=== PATIENT | male | born 1945 | race Caucasian/White ===

== ENCOUNTER 2016-11-01 07:11 | Outpatient (CLI) | payer MEDICARE, OTHER ==
[2016-11-01 11:17] LABS: BASOPHILS % (AUTO) 0.4 %; EOSINOPHILS # (AUTO) 0.1 10^3/uL (0.0-0.7); EOSINOPHILS % (AUTO) 1.9 %; HCT - HEMATOCRIT 49.3 % (42.0-52.0); HGB - HEMOGLOBIN 16.8 g/dL (14.0-18.0); LYMPHOCYTES # (AUTO) 2.1 10^3/uL (1.5-3.5); LYMPHOCYTES % (AUTO) 32.4 %; MEAN CORPUSCULAR HEMOGLOBIN 33.6 pg (27.0-31.0); MEAN CORPUSCULAR HGB CONC 34.1 g/dL (32.0-36.0); MEAN CORPUSCULAR VOLUME 98.3 fL (80.0-94.0); MEAN PLATELET VOLUME 8.1 fL (7.4-11.4); MONOCYTES # (AUTO) 0.7 10^3/uL (0.0-1.0); MONOCYTES % (AUTO) 10.4 %; NEUTROPHILS # (AUTO) 3.5 10^3/uL (1.5-6.6); NEUTROPHILS % (AUTO) 54.9 %; NUCLEATED RED BLOOD CELLS AUTO 0.1 /100WBC; RED BLOOD COUNT 5.01 10^6/uL (4.70-6.10); RED CELL DISTRIBUTION WIDTH 13.6 % (12.0-15.0); UNCORRECTED WHITE BLOOD COUNT 6.4 x10^3/uL; WHITE BLOOD COUNT 6.4 x10^3/uL (4.8-10.8)
[2016-11-01 11:49] LABS: ALBUMIN/GLOBULIN RATIO 1.4 (1.0-2.2); BILIRUBIN,TOTAL 0.8 mg/dL (0.2-1.0); BUN - BLOOD UREA NITROGEN 12 mg/dL (6-20); CARBON DIOXIDE - CO2 25 mmol/L (21-32); CHLORIDE 107 mmol/L (101-111); CHOL/HDL RATIO 3.3 (<5.0); CHOLESTEROL 149 mg/dL; CREATININE 0.9 mg/dL (0.6-1.2); GFR - MDRD 83 (>89); GLUCOSE 101 mg/dL (70-100); HDL CHOLESTEROL 45 mg/dL; LDL/HDL RATIO 2.1 (<3.6); POTASSIUM 4.1 mmol/L (3.5-5.0); SODIUM 140 mmol/L (135-145); TOTAL PROTEIN 6.8 g/dL (6.7-8.2); TRIGLYCERIDES 56 mg/dL; VLDL CHOLESTEROL 11 mg/dL
== END 2016-11-01 07:12 | disposition home or self-care (01) ==
LOC: LAB.F 07:11
PROVIDERS: ATTEND Nurse Practitioner Family
DX: Z00.00 Encounter for general adult medical examination without abnormal findings (principal); E55.9 Vitamin D deficiency, unspecified; E78.5 Hyperlipidemia, unspecified
CPT/HCPCS: 36415; 80053; 80061; 82306; 85025

== ENCOUNTER 2016-12-12 16:04 | Outpatient (CLI) | payer MEDICARE, OTHER ==
--- NOTE | 2016-12-13 19:25 | XRAY Report ---
CHEST, PA AND LATERAL: 12/12/2016 CLINICAL HISTORY: Patient has mucopurulent coughing x8 weeks. FINDINGS: Bony thorax demonstrates a minor old compression fracture in the lower T-spine. Minimal a nterior wedging in the mid T-spine is seen. Normal cardiac size is noted. Mediastinum is not widened. Pulmonary parenchyma appears normal. No acute infiltrate is seen. No parenchymal lesion is noted. IMPRESSION: 1. HEART AND LUNGS SHOW NO SIGNIFICANT ABNORMALITY. 2. MILD OLD COMPRESSION FRACTURE OF ONE OF THE LOWER THORACIC VERTEBRAE IS SEEN. JOB #: [id number] EXT JOB #:[id number]
== END 2016-12-12 16:05 | disposition home or self-care (01) ==
LOC: DI.S 16:04
PROVIDERS: ATTEND Nurse Practitioner Family
DX: R05 Cough (principal)
CPT/HCPCS: 71020

== ENCOUNTER 2017-02-11 11:07 | Outpatient (CLI) | payer MEDICARE, OTHER | END 2017-02-11 11:08 | disposition home or self-care (01) | LOC: LAB.F 11:07 | PROVIDERS: ATTEND Nurse Practitioner Family | DX: Z11.3 Encounter for screening for infections with a predominantly sexual mode of transmission (principal) | CPT/HCPCS: 36415; 86694; 86695; 86696; 87491; 87522; 87591; G0475; 87389 ==

== ENCOUNTER 2017-08-06 08:56 | Outpatient (CLI) | payer MEDICARE, OTHER ==
[2017-08-06 17:39] LABS: BASOPHILS % (AUTO) 0.4 %; EOSINOPHILS # (AUTO) 0.1 10^3/uL (0.0-0.7); EOSINOPHILS % (AUTO) 1.6 %; HGB - HEMOGLOBIN 16.3 g/dL (14.0-18.0); LYMPHOCYTES # (AUTO) 2.1 10^3/uL (1.5-3.5); LYMPHOCYTES % (AUTO) 31.1 %; MEAN CORPUSCULAR HEMOGLOBIN 33.2 pg (27.0-31.0); MEAN CORPUSCULAR HGB CONC 32.8 g/dL (32.0-36.0); MEAN CORPUSCULAR VOLUME 101.4 fL (80.0-94.0); MEAN PLATELET VOLUME 8.1 fL (7.4-11.4); MONOCYTES # (AUTO) 0.8 10^3/uL (0.0-1.0); NEUTROPHILS # (AUTO) 3.6 10^3/uL (1.5-6.6); NEUTROPHILS % (AUTO) 54.9 %; PLT - PLATELET COUNT 210 10^3/uL (130-450); RED BLOOD COUNT 4.92 10^6/uL (4.70-6.10); RED CELL DISTRIBUTION WIDTH 13.9 % (12.0-15.0); WHITE BLOOD COUNT 6.6 x10^3/uL (4.8-10.8)
[2017-08-06 17:41] LABS: ALBUMIN 4.3 g/dL (3.2-5.5); ALBUMIN/GLOBULIN RATIO 1.8 (1.0-2.2); ALKALINE PHOSPHATASE 41 IU/L (42-121); ALT ALANINE AMINOTRANSFERASE 18 IU/L (10-60); AST ASPARTATE AMINOTRANSFERASE 19 IU/L (10-42); BILIRUBIN,TOTAL 0.8 mg/dL (0.2-1.0); BUN - BLOOD UREA NITROGEN 14 mg/dL (6-20); CALCIUM 9.3 mg/dL (8.5-10.3); CARBON DIOXIDE - CO2 24 mmol/L (21-32); CHLORIDE 103 mmol/L (101-111); GFR - MDRD 73 (>89); GLUCOSE 97 mg/dL (70-100); SODIUM 137 mmol/L (135-145); TOTAL PROTEIN 6.7 g/dL (6.7-8.2)
[2017-08-06 17:43] LABS: CRP HIGH SENSITIVITY < 0.5 mg/L
[2017-08-06 18:05] LABS: T4 (THYROXINE) 5.87 ug/dL (6.09-12.23)
[2017-08-06 18:09] LABS: THYROID STIMULATING HORMONE 0.61 uIU/mL (0.34-5.60)
[2017-08-06 18:11] LABS: FREE T4 (FREE THYROXINE) 0.88 ng/dL (0.58-1.64)
[2017-08-06 18:41] LABS: HB2 TOTAL 17.9 g/dL; HEMOGLOBIN A1C 0.72 g/dL; HEMOGLOBIN A1C % 5.8 % (4.6-6.2)
[2017-08-08 12:41] LABS: THYROID PEROXIDASE ANTIBODIES 1 IU/mL (<9)
== END 2017-08-06 08:57 | disposition home or self-care (01) ==
LOC: LAB.F 08:56
PROVIDERS: ATTEND Nurse Practitioner Family
DX: M46.90 Unspecified inflammatory spondylopathy, site unspecified (principal); R53.83 Other fatigue; R73.9 Hyperglycemia, unspecified; E55.9 Vitamin D deficiency, unspecified; Z79.899 Other long term (current) drug therapy
CPT/HCPCS: 36415; 80053; 81599; 82306; 83036; 83090; 84436; 84439; 84443; 84481; 85025; 86141; 86376; 86800

== ENCOUNTER 2017-10-10 09:37 | Outpatient (CLI) | payer MEDICARE, OTHER ==
[2017-10-12 11:31] LABS: HSV 1 IGG TYPE SPECIFIC AB <0.90 index; HSV 2 IGG TYPE SPECIFIC AB <0.90 index
== END 2017-10-10 09:38 | disposition home or self-care (01) ==
LOC: LAB.F 09:37
PROVIDERS: ATTEND Nurse Practitioner Family
DX: Z11.3 Encounter for screening for infections with a predominantly sexual mode of transmission (principal)
CPT/HCPCS: 36415; 86695; 86696; 87491; 87591

== ENCOUNTER 2018-01-15 14:50 | Outpatient (CLI) | payer MEDICARE, OTHER | END 2018-01-15 14:51 | disposition critical access hospital (66) | LOC: EMS 14:50 | PROVIDERS: ATTEND Surgery | DX: R41.3 Other amnesia (principal); R41.0 Disorientation, unspecified | CPT/HCPCS: A0425; A0429 ==

== ENCOUNTER 2018-01-15 15:31 | Emergency (ER) | payer MEDICARE, OTHER ==
--- NOTE | 2018-01-15 17:24 | ED Physician Documentation ---
PD HPI FOCAL NEURO - Stated complaint Stated Complaint: MEMORY LOSS - Chief complaint Chief Complaint: Neuro - History obtained from History obtained from: Patient - History of Present Illness Timing - onset: How many weeks ago (daughter says he has had some memory deficits for months, but seems to be more aware of it the past couple of days - forgot that his had recently, for example. He feels there is some memory deficit more lately and he is bothered/frustrated by it.) Timing - details: Waxing and waning Severity of deficit: Mild Weakness: No: Face, Arm, Hand Numbness: No: Face, Hand Associated symptoms: No: Headache, Nausea / vomiting, Head injury Contributing factors: negative: Anticoagulated Baseline status: positive: A&OX3, ambulatory, indep Similar symptoms before: Has not had sx before Recently seen: Clinic (dentist yesterday for extraction of infected tooth right lower.) Review of Systems Constitutional: denies: Fever, Chills, Myalgias Nose: denies: Rhinorrhea / runny nose, Congestion Throat: denies: Sore throat Cardiac: denies: Chest pain / pressure, Palpitations Respiratory: denies: Dyspnea : denies: Dysuria, Frequency Skin: denies: Rash, Lesions Endocrine: denies: Polyuria, Polyphagia PD PAST MEDICAL HISTORY - Past Medical History Past Medical History: Yes - Past Surgical History Past Surgical History: No - Present Medications Home Medications: Ambulatory Orders Medication Instructions Recorded Confirmed No Known Home Medications [No 01/15/18 01/15/18 Known Home Medications] - Allergies Allergies/Adverse Reactions: Allergies Allergy/AdvReac Type Severity Reaction Status Date / Time No Known Drug Allergies Allergy Verified 01/15/18 15:50 - Social History Does the pt smoke?: No Smoking Status: Never smoker Does the pt drink ETOH?: No Does the pt have substance abuse?: No - Immunizations Immunizations are current?: Yes PD ED PE NORMAL - Vitals Vital signs reviewed: Yes - General General: Alert and oriented X 3, No acute distress, Well developed/nourished - HEENT HEENT: Atraumatic, Ears normal, Moist mucous membranes, Pharynx benign, Other ( right lower extraction site for tooth appears good without signs of inection. 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 Otherwise alert and conversant. ) Eye Opening: Spontaneous Motor: Obeys Commands Verbal: Oriented GCS Score: 15 - Psych Psych: Normal mood, Normal affect NIHSS - Level of Consciousness Level of consciousness: (0) Alert, Keenly responsive LOC Questions: (0) Answers both Q's correct LOC Commands: (0) Performs both correctly - Gaze Best Gaze: (0) Normal - Visual Visual: (0) No loss - Facial Palsy Facial Palsy: (0) Normal, symmetrical movement - Motor Arms (both separate) Motor Arm (right): (0) No drift Motor Arm (left): (0) No drift - Motor Legs (both separate) Motor Leg (right): (0) No drift Motor Leg (left): (0) No drift - Limb Ataxia Limb Ataxia: (0) Absent - Sensory Sensory: (0) Normal - Best Language Best Language: (0) No aphasia - Dysarthria Dysarthria: (0) Normal - Extinction and Inattention (formally neg Extinction and inattention: (0) No abnormality - Total Score/Results Total Score/Result: 0 Results - Vitals Vitals: Oxygen O2 Source Room air - Labs Labs: Laboratory Tests 01/15/18 01/15/18 01/15/18 17:00 17:59 17:59 WBC 8.9 RBC 4.42 L Hgb 15.3 Hct 44.8 MCV 101.2 H MCH 34.5 H MCHC 34.1 RDW 14.2 Plt Count 220 MPV 7.4 Neut # (Auto) 6.8 H Lymph # (Auto) 1.2 L Stearns # (Auto) 0.8 Eos # (Auto) 0.0 Baso # (Auto) 0.0 Absolute Nucleated RBC 0.00 Nucleated RBC % 0.0 ESR Sodium 133 L Potassium 4.6 Chloride 99 L Carbon Dioxide 25 Anion Gap 9.0 BUN 18 Creatinine 0.9 Estimated GFR (MDRD) 83 L Glucose 121 H Lactic Acid Calcium 9.5 Magnesium 2.3 Total Bilirubin 0.9 AST 16 ALT 15 Alkaline Phosphatase 38 L Troponin I Total Protein 6.9 Albumin 4.1 Globulin 2.8 Albumin/Globulin Ratio 1.5 Lipase 41 TSH Thyroxine (T4) Free T3 pg/mL Urine Color YELLOW Urine Clarity CLEAR Urine pH 5.5 Ur Specific [place] 1.025 Urine Protein NEGATIVE Urine Glucose (UA) 100 H Urine Ketones NEGATIVE Urine Occult Blood NEGATIVE Urine Nitrite NEGATIVE Urine Bilirubin NEGATIVE Urine Urobilinogen 0.2 (NORMAL) Ur Leukocyte Esterase NEGATIVE Ur Microscopic Review NOT INDICATED Urine Culture Comments NOT INDICATED 01/15/18 01/15/18 01/15/18 17:59 17:59 17:59 WBC RBC Hgb Hct MCV MCH MCHC RDW Plt Count MPV Neut # (Auto) Lymph # (Auto) Stearns # (Auto) Eos # (Auto) Baso # (Auto) Absolute Nucleated RBC Nucleated RBC % ESR 5 Sodium Potassium Chloride Carbon Dioxide Anion Gap BUN Creatinine Estimated GFR (MDRD) Glucose Lactic Acid 0.6 Calcium Magnesium Total Bilirubin AST ALT Alkaline Phosphatase Troponin I < 0.04 Total Protein Albumin Globulin Albumin/Globulin Ratio Lipase TSH Thyroxine (T4) Free T3 pg/mL Urine Color Urine Clarity Urine pH Ur Specific [place] Urine Protein Urine Glucose (UA) Urine Ketones Urine Occult Blood Urine Nitrite Urine Bilirubin Urine Urobilinogen Ur Leukocyte Esterase Ur Microscopic Review Urine Culture Comments 01/15/18 01/15/18 01/15/18 17:59 17:59 17:59 WBC RBC Hgb Hct MCV MCH MCHC RDW Plt Count MPV Neut # (Auto) Lymph # (Auto) Stearns # (Auto) Eos # (Auto) Baso # (Auto) Absolute Nucleated RBC Nucleated RBC % ESR Sodium Potassium Chloride Carbon Dioxide Anion Gap BUN Creatinine Estimated GFR (MDRD) Glucose Lactic Acid Calcium Magnesium Total Bilirubin AST ALT Alkaline Phosphatase Troponin I Total Protein Albumin Globulin Albumin/Globulin Ratio Lipase TSH 0.19 L Thyroxine (T4) 5.66 L Free T3 pg/mL 3.61 Urine Color Urine Clarity Urine pH Ur Specific [place] Urine Protein Urine Glucose (UA) Urine Ketones Urine Occult Blood Urine Nitrite Urine Bilirubin Urine Urobilinogen Ur Leukocyte Esterase Ur Microscopic Review Urine Culture Comments - Rads (name of study) head CT Radiology: Prelim report reviewed (age related changes. No acute process. ) PD MEDICAL DECISION MAKING - ED course Complexity details: considered differential (memory deficits that undulate, sometimes worse. Had tooth extracted yesterday with local anesth only. Seemed to be more forgetful and confused this morning. No new meds. No fever. concern for infection, med effect, sinus thrombosis with recent dental work. Will get labs and CT head. ), d/w patient, d/w family (daughter came to ER and is saying that the memory change is not so abrupt, has been undulating, and is worse the past few days. Discussed potential MRI with options of OBS and MRI tomorrow or getting it through PMD, and they would prefer to get any further testing through PMD. He is to start baby ASA daily and he said he is willing to do that. ) - Sepsis Event Vital Signs: Oxygen O2 Source Room air Departure - Departure Disposition: 01 Home, Self Care Clinical Impression: Memory changes Condition: Stable Record reviewed to determine appropriate education?: Yes Instructions: ED Confusion Follow-Up: Stanton Velasco ARNP [Primary Care Provider] - Comments: Take a baby aspirin daily. Follow-up with your primary care regarding possible outpatient MRI to evaluate for small stroke or other abnormalities. Also have them follow-up on the thyroid test results. Drink lots of fluids. Other usual medications. Discharge Date/Time: 01/15/18 19:59
[2018-01-15 17:31] LABS: BILIRUBIN,URINE NEGATIVE (NEGATIVE); GLUCOSE, URINE (UA) 100 mg/dL (NEGATIVE); KETONES,URINE (UA) NEGATIVE (NEGATIVE); LEUKOCYTE ESTERASE, URINE NEGATIVE (NEGATIVE); NITRITE,URINE NEGATIVE (NEGATIVE); OCCULT BLOOD,URINE NEGATIVE (NEGATIVE); PH,URINE 5.5 PH (5.0-7.5); PROTEIN,URINE NEGATIVE (NEGATIVE); UROBILINOGEN,URINE 0.2 (NORMAL) E.U./dL (NORMAL)
[2018-01-15 17:32] LABS: CLARITY,URINE CLEAR (CLEAR)
[2018-01-15 18:08] LABS: BASOPHILS % (AUTO) 0.4 %; EOSINOPHILS % (AUTO) 0.2 %; HGB - HEMOGLOBIN 15.3 g/dL (14.0-18.0); LYMPHOCYTES # (AUTO) 1.2 10^3/uL (1.5-3.5); LYMPHOCYTES % (AUTO) 13.6 %; MEAN CORPUSCULAR HEMOGLOBIN 34.5 pg (27.0-31.0); MEAN CORPUSCULAR HGB CONC 34.1 g/dL (32.0-36.0); MEAN CORPUSCULAR VOLUME 101.2 fL (80.0-94.0); MEAN PLATELET VOLUME 7.4 fL (7.4-11.4); MONOCYTES # (AUTO) 0.8 10^3/uL (0.0-1.0); MONOCYTES % (AUTO) 8.8 %; NEUTROPHILS # (AUTO) 6.8 10^3/uL (1.5-6.6); PLT - PLATELET COUNT 220 10^3/uL (130-450); RED BLOOD COUNT 4.42 10^6/uL (4.70-6.10); RED CELL DISTRIBUTION WIDTH 14.2 % (12.0-15.0); WHITE BLOOD COUNT 8.9 x10^3/uL (4.8-10.8)
[2018-01-15 18:17] LABS: ALBUMIN 4.1 g/dL (3.2-5.5); ALBUMIN/GLOBULIN RATIO 1.5 (1.0-2.2); BILIRUBIN,TOTAL 0.9 mg/dL (0.2-1.0); CALCIUM 9.5 mg/dL (8.5-10.3); CREATININE 0.9 mg/dL (0.6-1.2); MAGNESIUM 2.3 mg/dL (1.7-2.8); TOTAL PROTEIN 6.9 g/dL (6.7-8.2)
[2018-01-15 18:44] VITALS: BP 119/73
--- NOTE | 2018-01-15 18:47 | CT Report ---
Procedure Date: 01/15/2018 Accession Number: [id number] / [id number] Procedure: CT - Head W/O CPT Code: FULL RESULT: EXAM: CT HEAD EXAM DATE: 01/15/2018 06:20 PM. CLINICAL HISTORY: Confusion worse today. COMPARISON: None. TECHNIQUE: Multiaxial CT images were obtained from the foramen magnum to the vertex. Reformats: Coronal. IV contrast: None. In accordance with CT protocol optimization, one or more of the following dose reduction techniques were utilized for this exam: automated exposure control, adjustment of mA and/or KV based on patient size, or use of iterative reconstructive technique. FINDINGS: Parenchyma: No intraparenchymal hemorrhage. No evidence of mass, midline shift, or CT findings of acute infarction. Irizarry-white differentiation is distinct. Diffuse chronic microangiopathic white matter changes are evident. Extraaxial Spaces: Normal for age. No subdural or epidural collections identified. Ventricles: The ventricles and cortical sulci are enlarged, consistent with age-related tissue loss. Sinuses and orbits: Imaged paranasal sinuses, orbits, and mastoids show no significant abnormality. Bones: No evidence of fracture or calvarial defect. Other: None. IMPRESSION: Generalized age-related cortical atrophic changes without evidence of acute intracranial abnormality. RADIA
[2018-01-15] MEDS ORDERED: ASPIRIN CHEW 81 MG TABLET PO STA (19:50)
== END 2018-01-15 19:59 | disposition home or self-care (01) ==
LOC: EDUNIT# → ED 15:31
DX: R41.3 Other amnesia (principal)
CPT/HCPCS: 36415; 70450; 80053; 81003; 83605; 83690; 83735; 84436; 84443; 84481; 84484; 85025; 85651; 99283; A9270; 81001; 87086

== ENCOUNTER 2018-02-10 09:27 | Outpatient (CLI) | payer MEDICARE, OTHER ==
--- NOTE | 2018-02-11 07:09 | MRI Report ---
Reason: ACUTE SHORT TERM MEMORY LOSS Procedure Date: 02/10/2018 Accession Number: [id number] / [id number] Procedure: MRI - Brain W/O CPT Code: FULL RESULT: EXAM: MRI BRAIN WITHOUT CONTRAST EXAM DATE: 02/10/2018 10:33 AM. CLINICAL HISTORY: 72-year-old male. ACUTE SHORT TERM MEMORY LOSS. COMPARISON: HEAD W/O 01/15/2018 6:12 PM. TECHNIQUE: Multiplanar, multisequence T1-weighted and fluid-sensitive MR sequences of the brain were performed. Sequences optimized for routine evaluation. Other: None. IV Contrast: None. FINDINGS: Brain Volume: Normal for age. Parenchyma/Dura: No mass, acute infarct or hemorrhage. No white matter lesions identified. There is a focus of susceptibility artifact within the inferior medial left cerebellum (series 801 image 2). Ventricles/Cisterns: Moderate ventriculomegaly involving the supratentorial ventricles, appears out of proportion to sulcal enlargement. In addition, the Powell ratio measures 0.38, which is elevated. Orbits: Status post bilateral lens replacement surgery. The visualized orbits are otherwise unremarkable. Sella Turcica: The pituitary gland, cavernous sinuses, suprasellar cistern and optic chiasm are unremarkable. IAC: Symmetric and unremarkable. Vasculature: Normal signal flow void is seen in the major arterial structures at the skull base. Sinuses: Mild mucosal thickening ethmoid air cells. Moderate mucosal thickening right maxillary sinus. The remaining paranasal sinuses are clear. Bones: No focal pathologic appearing marrow signal changes. Other: None. IMPRESSION: 1. Moderate ventriculomegaly involving the supratentorial ventricles, appears out of proportion to sulcal enlargement. In addition, the Powell ratio measures 0.38, which is elevated. This is nonspecific for prominent central volume loss versus normal pressure hydrocephalus. Recommend clinical correlation for symptoms of normal pressure hydrocephalus. In addition, consider CSF flow study MRI. 2. No MRI evidence of acute intracranial abnormality. Specifically, no evidence of acute or subacute infarct, acute intracranial hemorrhage, mass, or midline shift. No significant white matter disease burden. 3. There is a focus of susceptibility artifact within the inferior medial left cerebellum (series 801 image 2). This may represent a chronic microhemorrhage, possibly hypertensive microbleed versus a small cavernoma. RADIA
== END 2018-02-10 09:28 | disposition home or self-care (01) ==
LOC: DI 09:27
PROVIDERS: ATTEND Nurse Practitioner Family
DX: G93.89 Other specified disorders of brain (principal); R41.3 Other amnesia
CPT/HCPCS: 70551

== ENCOUNTER 2018-02-13 12:49 | Outpatient (CLI) | payer MEDICARE, OTHER | END 2018-02-13 12:50 | disposition home or self-care (01) | LOC: RT 12:49 | PROVIDERS: ATTEND Internal Medicine Gastroenterology | DX: R41.3 Other amnesia (principal); K40.90 Unilateral inguinal hernia, without obstruction or gangrene, not specified as recurrent | CPT/HCPCS: 93005 ==

== ENCOUNTER 2018-02-17 08:39 | Day surgery (SDC) | payer MEDICARE, OTHER ==
[2018-02-17] MEDS ORDERED: ceFAZolin 2 GM/50 ML 2 GM/50 ML BAG IV ONE (08:49)
[2018-02-17] MEDS ORDERED: LACTATED RINGERS 1,000 ML IV ONE ×2 (09:05→12:44)
--- NOTE | 2018-02-17 09:22 | ANESTHESIA ---
Pre-Anesthesia VS, & Labs - Diagnosis right inguinal hernia - Procedure right inguinal hernia repair Vital Signs: Temp Pulse Resp BP Pulse Ox 36.2 C L 52 L 16 133/73 H 98 02/17/18 08:54 02/17/18 08:54 02/17/18 08:54 02/17/18 08:54 02/17/18 08:54 Height 5 ft 10 in Weight (kg) 71 kg Body Mass Index 20.0 - NPO >8 hours Home Medications and Allergies Home Medications: Ambulatory Orders Medication Instructions Recorded Confirmed Aspirin [Aspirin EC] 81 mg PO DAILY 02/14/18 02/14/18 Testosterone [Androgel] 1 applic TD DAILY 02/14/18 02/14/18 Aspirin [Aspirin EC] 81 mg PO DAILY 02/14/18 Testosterone [Androgel] 1 applic TD DAILY 02/14/18 Allergies/Adverse Reactions: Allergies Allergy/AdvReac Type Severity Reaction Status Date / Time No Known Drug Allergies Allergy Verified 02/14/18 11:56 Anes History & Medical History - Anesthetic History Anesthesia Complications: reports: No previous complications Family history of Anesthesia Complications: Denies Family history of Malignant Hyperthermia: Denies - Medical History Cardiovascular: reports: None Pulmonary: reports: None Gastrointestinal: reports: GERD Urinary: reports: None Neuro: reports: TIA Musculoskeletal: reports: None, Other (has had memory problems) Endocrine/Autoimmune: reports: None Skin: reports: None Smoking Status: Never smoker - Surgical History Eyes Ears Nose Throat (EENT): Cataracts Dermatologic: Skin cancer surgery Exam General: Alert Dental: Other (caps and implants) Mouth Openin Fingerbreadth Neck Mobility: Normal Mallampati classification: II Thyromental Distance: greater than 6 cm Respiratory: Lungs clear, Normal breath sounds, No respiratory distress, No accessory muscle use Cardiovascular: Regular rate Mental/Cognitive Status: Alert/Oriented X3, Normal for patient Cognitive Status: Within normal limits Plan Anesthesia Type: MAC Consent for Procedure(s) Verified and Reviewed: Yes Code Status: Attempt Resuscitation ASA classification: 2-Mild systemic disease Is this case an emergency?: No
[2018-02-17] MEDS ORDERED: LIDOCAINE-MPF 1% 30 ML VIAL ONE (09:47)
[2018-02-17] MEDS ORDERED: BUPIVACAINE 0.5%-EPI 1:200000 PF 30 ML VIAL ONE (09:47)
[2018-02-17] MEDS ORDERED: BUPIVACAINE 0.5%-EPI 1:200000 PF 30 ML VIAL SUBQ ONE (11:05)
[2018-02-17] MEDS ORDERED: ceFAZolin 1 GM VIAL IR ONE (11:05)
[2018-02-17] MEDS ORDERED: LIDOCAINE 1% 50 ML MDV SUBQ ONE (11:05)
[2018-02-17] MEDS ORDERED: PROPOFOL 200 MG/20 ML VIAL IVP ONE (11:52)
[2018-02-17] MEDS ORDERED: KETOROLAC 30 MG/ML VIAL IVP ONE (11:52)
[2018-02-17] MEDS ORDERED: fentaNYL 100 MCG/2 ML VIAL IVP ONE (11:52)
[2018-02-17] MEDS ORDERED: ONDANSETRON 4 MG/2 ML VIAL IVP PRN (12:01)
[2018-02-17] MEDS ORDERED: IBUPROFEN 600 MG TABLET PO PRN (12:01)
[2018-02-17] MEDS ORDERED: oxyCODONE 5 MG TABLET PO PRN (12:01)
[2018-02-17] MEDS ORDERED: ACETAMINOPHEN 325 MG TABLET PO PRN (12:01)
[2018-02-17 13:43] VITALS: BP 125/66
--- NOTE | 2018-02-17 18:37 | OPERATIVE REPORT ---
DATE OF SERVICE: Physician: Gerardo Belcher MD PREOPERATIVE DIAGNOSIS: Symptomatic right inguinal hernia. POSTOPERATIVE DIAGNOSIS: Symptomatic right inguinal hernia, indirect. PROCEDURE PERFORMED: Open repair of right inguinal hernia with Bard mesh. ANESTHESIA: Local plus monitored anesthesia care by Matheus Bentley CRNA. SURGEON: Gerardo Belcher MD ESTIMATED BLOOD LOSS: 10 mL COMPLICATIONS: None. FINDINGS: A small indirect right inguinal hernia was identified. There was no evidence of femoral o r direct inguinal hernia. A precut slotted expanded polypropylene mesh was used for the reconstructi on. INDICATIONS: López Villatoro is a 72-year-old gentleman with a slowly enlarging right groin bulge. Evaluation revealed a reducible right inguinal hernia. He was interested in repair and advised to un dergo same under local anesthesia with sedation. TECHNIQUE: After informed consent, the patient was taken to the operating room where he was sedated and monitored. Preoperative preparation included application of sequential calf compression boots, a dministration of 2 grams of cefazolin intravenously within an hour of the incision. His right groin had been clipped and was then prepared with Betadine solution, following which a right groin block wa s instituted using a 50:50 combination of 1% lidocaine plain and 0.5% Marcaine with epinephrine, a to preston of 40 mL of the mixture was used. The right groin was then prepared with ChloraPrep solution and draped in the usual sterile fashion. Transverse incision was made in the skin lines of the right gr oin beginning above the pubic tubercle and extending laterally approximately 5 cm. Hemostasis achiev ed with electrocautery and 2-0 Vicryl ties. The incision was carried down through subcutaneous tissu es until the external oblique aponeurosis was identified and was incised along the lines of its fiber s in such a manner as to open the external ring and expose the internal ring. The spermatic cord was mobilized and encircled with a Miller drain. The ilioinguinal nerve was identified and was divided to avoid entrapment and neuralgia. The spermatic cord was then carefully dissected, isolating the i ndirect hernia sac and dissecting it free from surrounding cord structure at the level of the interna l ring. The hernia sac was opened and a finger inserted into the peritoneal cavity and search for di rect and femoral hernias was made and none was found. The hernia sac was twisted and doubly suture l igated with 3-0 silk suture ligatures. Excess hernia sac was amputated and discarded. After hemosta sis was assured, the right groin and was irrigated with antibiotic solution containing 1 gram cefazol in per liter and after hemostasis had been assured, a Bard precut slotted expanded polypropylene mesh was soaked in antibiotic solution, brought into the field, placed over the inguinal floor and secure d in place with 3-0 Prolene in a continuous fashion circumferentially, suturing the mesh to the shelv ing edge of Poupart's ligament inferiorly to the internal oblique aponeurosis superolaterally to the lateral border of the rectus sheath medially. Care was taken to avoid excessive tightening of the pa tch around the cord at the level of the internal ring. After hemostasis was assured, the wound was i rrigated with antibiotic solution again, following which wound closure was accomplished in layers usi ng continuous 2-0 Vicryl to reapproximate the external oblique aponeurosis overlying the cord, follow ing continuous 3-0 Vicryl for Bradley's fascia, 4-0 Monocryl subcuticular skin closure and Dermabond c ompleted wound closure. Procedure was terminated and the patient transferred out of the operating ro om in satisfactory condition. Sponge and needle counts were correct x2 and no drains were used. cc: Damir Matthews MD TD: 02/17/2018 12:22
== END 2018-02-17 08:40 | disposition home or self-care (01) ==
LOC: SDS 08:39
PROVIDERS: ATTEND Internal Medicine Gastroenterology
PROC: 0YU50JZ Supplement Right Inguinal Region with Synthetic Substitute, Open Approach (ICD-10-PCS; principal; 2018-02-17 09:45)
DX: K40.90 Unilateral inguinal hernia, without obstruction or gangrene, not specified as recurrent (principal); R41.3 Other amnesia
CPT/HCPCS: 49505; C1781; J0690; J7120

== ENCOUNTER 2018-03-20 10:46 | Outpatient (CLI) | payer MEDICARE, OTHER ==
[2018-03-20 17:22] LABS: BASOPHILS % (AUTO) 0.4 %; EOSINOPHILS # (AUTO) 0.1 10^3/uL (0.0-0.7); EOSINOPHILS % (AUTO) 1.2 %; HGB - HEMOGLOBIN 16.7 g/dL (14.0-18.0); LYMPHOCYTES # (AUTO) 1.7 10^3/uL (1.5-3.5); LYMPHOCYTES % (AUTO) 22.3 %; MEAN CORPUSCULAR HEMOGLOBIN 33.9 pg (27.0-31.0); MEAN CORPUSCULAR HGB CONC 33.2 g/dL (32.0-36.0); MEAN CORPUSCULAR VOLUME 102.2 fL (80.0-94.0); MEAN PLATELET VOLUME 8.1 fL (7.4-11.4); MONOCYTES # (AUTO) 0.9 10^3/uL (0.0-1.0); MONOCYTES % (AUTO) 11.8 %; NEUTROPHILS % (AUTO) 64.3 %; PLT - PLATELET COUNT 206 10^3/uL (130-450); RED BLOOD COUNT 4.93 10^6/uL (4.70-6.10); RED CELL DISTRIBUTION WIDTH 14.4 % (12.0-15.0); WHITE BLOOD COUNT 7.7 x10^3/uL (4.8-10.8)
[2018-03-20 17:44] LABS: ALBUMIN 4.3 g/dL (3.2-5.5); ALBUMIN/GLOBULIN RATIO 1.7 (1.0-2.2); ALKALINE PHOSPHATASE 47 IU/L (42-121); ALT ALANINE AMINOTRANSFERASE 13 IU/L (10-60); AST ASPARTATE AMINOTRANSFERASE 14 IU/L (10-42); BILIRUBIN,TOTAL 0.6 mg/dL (0.2-1.0); BUN - BLOOD UREA NITROGEN 14 mg/dL (6-20); CALCIUM 9.7 mg/dL (8.5-10.3); CARBON DIOXIDE - CO2 31 mmol/L (21-32); CHLORIDE 102 mmol/L (101-111); CREATININE 0.8 mg/dL (0.6-1.2); GFR - MDRD 95 (>89); GLUCOSE 104 mg/dL (70-100); SODIUM 138 mmol/L (135-145); TOTAL PROTEIN 6.8 g/dL (6.7-8.2)
[2018-03-20 17:50] LABS: THYROID STIMULATING HORMONE 0.63 uIU/mL (0.34-5.60)
[2018-03-20 17:56] LABS: CRP HIGH SENSITIVITY < 0.5 mg/L
[2018-03-21 09:36] LABS: HOMOCYSTEINE 9.8 umol/L (<11.4)
== END 2018-03-20 10:47 | disposition home or self-care (01) ==
LOC: LAB.F 10:46
PROVIDERS: ATTEND Nurse Practitioner Family
DX: G31.84 Mild cognitive impairment of uncertain or unknown etiology (principal)
CPT/HCPCS: 36415; 80053; 82607; 83090; 83921; 84443; 85025; 86141

== ENCOUNTER 2018-08-08 09:44 | Outpatient (CLI) | payer MEDICARE, OTHER ==
[2018-08-08 18:10] LABS: BASOPHILS % (AUTO) 0.4 %; EOSINOPHILS % (AUTO) 0.7 %; HGB - HEMOGLOBIN 16.2 g/dL (14.0-18.0); LYMPHOCYTES # (AUTO) 1.6 10^3/uL (1.5-3.5); MEAN CORPUSCULAR HEMOGLOBIN 33.8 pg (27.0-31.0); MEAN CORPUSCULAR HGB CONC 33.4 g/dL (32.0-36.0); MEAN CORPUSCULAR VOLUME 101.1 fL (80.0-94.0); MEAN PLATELET VOLUME 8.1 fL (7.4-11.4); MONOCYTES # (AUTO) 0.7 10^3/uL (0.0-1.0); MONOCYTES % (AUTO) 11.1 %; NEUTROPHILS # (AUTO) 3.8 10^3/uL (1.5-6.6); NEUTROPHILS % (AUTO) 61.8 %; PLT - PLATELET COUNT 202 10^3/uL (130-450); RED CELL DISTRIBUTION WIDTH 14.3 % (12.0-15.0); WHITE BLOOD COUNT 6.2 x10^3/uL (4.8-10.8)
[2018-08-08 18:29] LABS: ALBUMIN 4.2 g/dL (3.2-5.5); ALBUMIN/GLOBULIN RATIO 1.7 (1.0-2.2); BILIRUBIN,TOTAL 0.9 mg/dL (0.2-1.0); CALCIUM 9.3 mg/dL (8.5-10.3); CREATININE 0.9 mg/dL (0.6-1.2); TOTAL PROTEIN 6.7 g/dL (6.7-8.2)
[2018-08-08 19:52] LABS: T4 (THYROXINE) 5.85 ug/dL (6.09-12.23)
[2018-08-08 19:55] LABS: THYROID STIMULATING HORMONE 1.09 uIU/mL (0.34-5.60)
[2018-08-08 19:57] LABS: FREE T4 (FREE THYROXINE) 0.88 ng/dL (0.58-1.64)
[2018-08-08 20:20] LABS: PSA TOTAL 1.71 ng/mL (0.000-2.000)
[2018-08-08 20:24] LABS: FREE T3 3.4 pg/mL (2.5-3.9)
== END 2018-08-08 09:45 | disposition home or self-care (01) ==
LOC: LAB.F 09:44
PROVIDERS: ATTEND Naturopath
DX: Z00.00 Encounter for general adult medical examination without abnormal findings (principal); R68.82 Decreased libido; E03.9 Hypothyroidism, unspecified; G47.00 Insomnia, unspecified
CPT/HCPCS: 36415; 80053; 82306; 82626; 84153; 84403; 84436; 84439; 84443; 84481; 85025

== ENCOUNTER 2019-01-05 09:22 | Outpatient (CLI) | payer MEDICARE, OTHER ==
[2019-01-05 17:26] LABS: BASOPHILS % (AUTO) 0.5 %; EOSINOPHILS # (AUTO) 0.1 10^3/uL (0.0-0.7); EOSINOPHILS % (AUTO) 0.7 %; HGB - HEMOGLOBIN 16.4 g/dL (14.0-18.0); LYMPHOCYTES # (AUTO) 2.3 10^3/uL (1.5-3.5); LYMPHOCYTES % (AUTO) 30.5 %; MEAN CORPUSCULAR HEMOGLOBIN 33.3 pg (27.0-31.0); MEAN CORPUSCULAR HGB CONC 32.9 g/dL (32.0-36.0); MEAN CORPUSCULAR VOLUME 101.2 fL (80.0-94.0); MEAN PLATELET VOLUME 9.9 fL (7.4-11.4); MONOCYTES # (AUTO) 0.8 10^3/uL (0.0-1.0); MONOCYTES % (AUTO) 10.8 %; NEUTROPHILS # (AUTO) 4.3 10^3/uL (1.5-6.6); NEUTROPHILS % (AUTO) 57.1 %; PLT - PLATELET COUNT 194 10^3/uL (130-450); RED BLOOD COUNT 4.93 10^6/uL (4.70-6.10); RED CELL DISTRIBUTION WIDTH 13.5 % (12.0-15.0); WHITE BLOOD COUNT 7.5 x10^3/uL (4.8-10.8)
[2019-01-05 17:50] LABS: T4 (THYROXINE) 6.66 ug/dL (6.09-12.23)
[2019-01-05 17:53] LABS: ALBUMIN 4.1 g/dL (3.2-5.5); ALBUMIN/GLOBULIN RATIO 1.5 (1.0-2.2); BILIRUBIN,TOTAL 0.8 mg/dL (0.2-1.0); CALCIUM 9.8 mg/dL (8.5-10.3); TOTAL PROTEIN 6.8 g/dL (6.7-8.2)
[2019-01-05 17:54] LABS: THYROID STIMULATING HORMONE 0.55 uIU/mL (0.34-5.60)
== END 2019-01-05 09:23 | disposition home or self-care (01) ==
LOC: LAB.S 09:22
PROVIDERS: ATTEND Nurse Practitioner Family
DX: E55.9 Vitamin D deficiency, unspecified (principal); E78.5 Hyperlipidemia, unspecified; Z79.899 Other long term (current) drug therapy
CPT/HCPCS: 36415; 80053; 82306; 84436; 84443; 84481; 85025

== ENCOUNTER 2019-04-14 15:42 | Outpatient (CLI) | payer MEDICARE, BC | END 2019-04-14 15:43 | disposition home or self-care (01) | LOC: RT 15:42 | PROVIDERS: ATTEND Internal Medicine Gastroenterology | DX: R41.3 Other amnesia (principal); K40.90 Unilateral inguinal hernia, without obstruction or gangrene, not specified as recurrent ==

== ENCOUNTER 2019-04-17 06:56 | Outpatient (CLI) | payer MEDICARE, BC ==
--- NOTE | 2019-04-17 13:04 | MRI Report ---
Reason: MEMORY LOSS Procedure Date: 04/17/2019 Accession Number: [id number] / [id number] Procedure: MRI - Brain W/O CPT Code: Final Report FULL RESULT: EXAM: MRI BRAIN WITHOUT CONTRAST EXAM DATE: 04/17/2019 07:56 AM. CLINICAL HISTORY: 73-year-old presenting with progressive memory loss. Evaluate for intracranial pathology. COMPARISON: BRAIN W/O 02/10/2018 9:55 AM. TECHNIQUE: Multiplanar, multisequence T1-weighted and fluid-sensitive MR sequences of the brain were performed. Sequences optimized for routine evaluation. Other: None. IV Contrast: None. FINDINGS: Brain Volume: Normal for age. Parenchyma/Dura: No acute parenchymal hemorrhage, mass, or midline shift. Minimal bilateral areas of T2/FLAIR signal hyperintensity seen that appear similar to MR brain 02/10/2018. No areas of restricted diffusion seen to suggest an acute infarct. Again seen is a focus of susceptibility artifact within the inferomedial left cerebellum similar to prior study. Ventricles/Cisterns: Lateral ventricles and third ventricle appear prominent, questionably out of proportion for the extent of volume loss. Overall ventricular size and configuration appear similar to prior study. No abnormal extra-axial fluid collection or hemorrhage. Orbits: Changes of bilateral lens replacement. Sella Turcica: The pituitary gland, cavernous sinuses, suprasellar cistern and optic chiasm are unremarkable. IAC: Symmetric and unremarkable. Vasculature: Normal signal flow void is seen in the major arterial structures at the skull base. Sinuses: Tiny right maxillary mucosal retention cyst versus polyps. Minimal paranasal sinus mucosal thickening. Mastoid air cells and middle ear cavities appear clear. Bones: No focal pathologic appearing marrow signal changes. Other: None. IMPRESSION: 1. No acute infarct or acute cranial hemorrhage seen. No mass or midline shift. 2. Again demonstrated is prominence of the lateral ventricles and third ventricle which appear questionably out of proportion for the extent of volume loss. Clinical correlation for normal pressure hydrocephalus is suggested. 3. Minimal white matter changes seen that appear similar to MR brain 02/10/2018, and while nonspecific, may represent sequela of chronic small vessel ischemic disease. 4. Punctate foci of chronic hemosiderin deposition involving the inferomedial left cerebellum similar to MR brain 02/10/2018. Etiologies include microhemorrhage from hypertension or old hemorrhagic lacunar infarct. RADIA
== END 2019-04-17 06:57 | disposition home or self-care (01) ==
LOC: DI 06:56
PROVIDERS: ATTEND Family Medicine
DX: R41.3 Other amnesia (principal)
CPT/HCPCS: 70551

== ENCOUNTER 2019-11-20 17:46 | Emergency (ER) | payer MEDICARE, BC ==
[2019-11-20] MEDS ORDERED: KETOROLAC 60 MG/2 ML VIAL IM STA (18:36)
[2019-11-20] MEDS ORDERED: methocarbamoL 500 MG TABLET PO STA (18:36)
--- NOTE | 2019-11-20 18:39 | ED Physician Documentation ---
PD HPI BACK PAIN - Stated complaint Stated Complaint: LOWER BACK PX - Chief complaint Chief Complaint: Back Pain - History obtained from History obtained from: Patient - History of Present Illness Timing - onset: How many hours ago (3) Timing - duration: Hours (3) Timing - details: Abrupt onset Pain level max: 9 Pain level now: 6 Location: Lower, Right, Left Quality: Pain, Spasm, Similar to prior episodes Associated symptoms: No: Fever, Weakness, Numbness, Incontinent of urine, Unable to urinate, Hematuria, Incontinent of stool Improves with: Rest Worsened by: Movement Contributing factors: Lifting - Additional information Additional information: Patient states that he was trying to lift the front end of his tractor out of a hole when he felt a pop in his back. Similar to what happened a few years ago. He was able to get back on the tractor and finish mowing, when he got off the tractor his back was hurting worse. No loss of bowel or bladder control. No numbness or tingling. Took Arnica prior to arrival. Review of Systems Constitutional: denies: Fever Cardiac: denies: Chest pain / pressure, Palpitations Respiratory: denies: Dyspnea, Cough GI: denies: Vomiting, Diarrhea Skin: denies: Rash Musculoskeletal: denies: Neck pain Neurologic: denies: Focal weakness, Numbness, Headache PD PAST MEDICAL HISTORY - Past Medical History Past Medical History: Yes Neuro: TIA Musculoskeletal: None, Other - Past Surgical History Past Surgical History: No HEENT: Cataracts - Present Medications Home Medications: Ambulatory Orders Medication Instructions Recorded Confirmed Aspirin [Aspirin EC] 81 mg PO DAILY 02/14/18 02/14/18 Testosterone [Androgel] 1 applic TD DAILY 02/14/18 02/14/18 Oxycodone HCl 5 mg PO Q6H PRN #14 tablet 11/20/19 - Allergies Allergies/Adverse Reactions: Allergies Allergy/AdvReac Type Severity Reaction Status Date / Time No Known Drug Allergies Allergy Verified 11/20/19 17:58 - Social History Does the pt smoke?: No Smoking Status: Never smoker Does the pt drink ETOH?: No Does the pt have substance abuse?: No - Immunizations Immunizations are current?: Yes PD ED PE NORMAL - Vitals Vital signs reviewed: Yes - General General: Alert and oriented X 3, No acute distress, Well developed/nourished - HEENT HEENT: Moist mucous membranes - Neck Neck: Supple, no meningeal sign - Cardiac Cardiac: RRR, Strong equal pulses - Respiratory Respiratory: No respiratory distress, Clear bilaterally - Abdomen Abdomen: Soft, Non tender, Non distended - Back Back: Other (Tender to palpation mid lumbar and low lumbar. No step-off or deformity. Paraspinal spasm present.) - Derm Derm: Warm and dry - Extremities Extremities: Other (Normal bilateral lower extremity patellar and ankle jerk reflexes. Normal great toe extension bilaterally. no saddle anesthesia) - Neuro Neuro: Alert and oriented X 3, No motor deficit, No sensory deficit - Psych Psych: Normal mood, Normal affect Results - Vitals Vitals: Vital Signs - 24 hr 11/20/19 11/20/19 17:55 20:23 Temperature 36.1 C L Heart Rate 58 L 52 L Respiratory 18 16 Rate Blood Pressure 135/71 H 131/71 H O2 Saturation 96 97 Oxygen O2 Source Room air - Rads (name of study) L-spine x-ray Radiology: Prelim report reviewed, EMP read contemporaneously, See rad report (L5 compression fracture) L-spine CT Radiology: Prelim report reviewed, EMP read contemporaneously, See rad report (Old L3 inferior endplate compression fracture. Acute L5 superior endplate fracture, does not extend to the posterior column. Anterior aspect.) PD MEDICAL DECISION MAKING - ED course Complexity details: reviewed results, re-evaluated patient, considered differential, d/w patient ED course: Patient with an L5 compression fracture, anterior aspect. No posterior elements involved. Normal neurological exam. He does not want a brace. We will place him on pain medication for home. Ambulating well. No neurological deficits. Patient counseled regarding signs and symptoms for which I believe and urgent re-evaluation would be necessary. Patient with good understanding of and agreement to plan and is comfortable going home at this time This document was made in part using voice recognition software. While efforts are made to proofread this document, sound alike and grammatical errors may occur. Departure - Departure Disposition: 01 Home, Self Care Clinical Impression: Compression fracture Condition: Good Instructions: ED Fx Comp Vertebral Follow-Up: Stanton Velasco ARNP [Primary Care Provider] - Within 1 week Prescriptions: Oxycodone HCl 5 mg PO Q6H PRN #14 tablet PRN Reason: pain Comments: You can use the oxycodone as needed for breakthrough pain. You can start with Motrin or Tylenol or Aleve. You have an L5 compression fracture that should heal well. These do not require surgery. Follow-up with your doctor in 1 week for repeat evaluation. Avoid any high impact activities. Do not drink alcohol or drive while on narcotic pain medicine. Note that many narcotic pain relievers also contain tylenol/acetaminophen. Please ensure that your total dose of acetaminophen from all sources does not exceed 3 grams (3000mg) per day. You may constipated on this medication, take a stool softener such as "Colace" twice a day while you are on it. Also recommend a cltx-dbn-cncgswr laxative such as senna or MiraLAX any day that you do not have a bowel movement. If you received narcotic pain medication in the emergency department, do not drive or operate machinery for the next 24 hours. Discharge Date/Time: 11/20/19 21:07
--- NOTE | 2019-11-20 19:21 | XRAY Report ---
PROCEDURE: Lumbar Spine 2 View INDICATIONS: back pain s/p a "pop" TECHNIQUE: 2 views of the lumbar spine were acquired. COMPARISON: None. FINDINGS: Bones: 5 she-xuy-ofhvfzo vertebrae are present. There is straightening of normal lumbar lordosis. T here is a acute compression fracture involving the anterior, superior endplate of L5. There is minima l loss of anterior vertebral body height. Diffuse osteopenia. Multilevel lumbar spondylosis. No susp icious bony lesions. Soft tissues: Overlying bowel gas pattern is normal. No suspicious soft tissue calcifications. IMPRESSION: Acute anterior compression fracture of the L5 vertebral body. Diffuse osteopenia. Multilevel lumbar spondylosis. Findings were discussed with Dr. Kaiser at 1920 hours. Reviewed by: Brandon Duggan MD on 11/20/2019 7:20 PM PDT Approved by: Brandon Duggan MD on 11/20/2019 7:20 PM PDT Station ID: [id number]
--- NOTE | 2019-11-20 20:07 | CT Report ---
PROCEDURE: LUMBAR SPINE WO INDICATIONS: possible L5 compression fx TECHNIQUE: Noncontrast 3 mm thick sections acquired from the T12 level to the sacrum. Sagittal and coronal refo rmats were constructed. For radiation dose reduction, the following was used: automated exposure co ntrol, adjustment of mA and/or kV according to patient size. COMPARISON: None. FINDINGS: Image quality: Excellent. Bones: There is normal bony alignment. No suspicious lytic or blastic bony lesions. Central spinal caliber is of normal overall caliber. No pars defects. Diffuse osteopenia. Multilevel spondylosis throughout the imaged spine. There is an acute anterior, superior endplate compression fracture of the L5 vertebral body without e vidence for extension into the posterior column. There is minimal loss of the anterior vertebral body height. Chronic appearing inferior endplate compression deformity of L3. No significant spinal canal stenosis. No significant neural foraminal narrowing. Soft tissues: No retroperitoneal masses or hematomas. Visualized aorta is normal in caliber. Scatt ered atherosclerosis. Nonobstructing right renal stone. This measures approximately 5 mm in size. IMPRESSION: 1. Acute anterior superior endplate compression fracture of L5 with mild loss of the anterior vertebr al body height. No evidence for neural foraminal or spinal canal stenosis. 2. Moderate multilevel spondylosis of the imaged spine. 3. Nonobstructing 5 mm right nephrolith. 4. Atherosclerosis. Reviewed by: Brandon Duggan MD on 11/20/2019 8:05 PM PDT Approved by: Brandon Duggan MD on 11/20/2019 8:05 PM PDT Station ID: [id number]
[2019-11-20 20:24] VITALS: BP 131/71
== END 2019-11-20 21:07 | disposition home or self-care (01) ==
LOC: ED 17:46
DX: M48.56XA Collapsed vertebra, not elsewhere classified, lumbar region, initial encounter for fracture (principal)
CPT/HCPCS: 72100; 72131; 96372; 99284; A9270

== ENCOUNTER 2020-07-22 13:47 | Outpatient (CLI) | payer MEDICARE, BC ==
--- NOTE | 2020-07-22 14:38 | XRAY Report ---
PROCEDURE: Shoulder 3 View LT INDICATIONS: SHOULDER PAIN TECHNIQUE: 3 views of the shoulder were acquired. COMPARISON: None. FINDINGS: Bones: No fractures or dislocations. No suspicious bony lesions. Visualized ribs appear intact. Soft tissues: No suspicious soft tissue calcifications. IMPRESSION: Normal left shoulder Reviewed by: Yon Kay on 07/22/2020 2:37 PM [facility] Approved by: Yon Kay on 07/22/2020 2:37 PM [facility] Station ID: [id number]
--- NOTE | 2020-07-22 15:39 | XRAY Report ---
PROCEDURE: Lumbar Spine 2 View INDICATIONS: ONGOING PAIN WITH MOVEMENT TECHNIQUE: 2 views of the lumbar spine were acquired. COMPARISON: None. FINDINGS: Bones: 5 vqv-uto-khtuzrs vertebrae are present. No vertebral body height loss. There is a Schmorl's node of the inferior endplate of L3, unchanged compared to prior CT on 11/20/2019. There has been int erval further height loss of L5 compared to the prior CT on 11/20/2019. There is leftward curvature of the lumbar spine at L5-S1. There is normal bony alignment. There is a compression fracture which has sclerosis indicating a remote fracture with interval healing. No suspicious bony lesions. Soft tissues: Overlying bowel gas pattern is normal. No suspicious soft tissue calcifications. IMPRESSION: Interval collapse of the L5 vertebral body since CT on 11/20/2019. There is sclerosis of the vertebral body indicating interval healing however there is a persistent fracture lucency of the anterior vertebral body. Recommend CT of the lumbar spine to assess for interval change and possible retropulsion. Reviewed by: Yon Kay on 07/22/2020 3:38 PM PST Approved by: Yon Kay on 07/22/2020 3:38 PM PST Station ID: [id number]
--- NOTE | 2020-07-22 15:42 | XRAY Report ---
PROCEDURE: Hip w/Pelvis 2-3V RT INDICATIONS: ONGOING PAIN WITH MOVEMENT ESPECIALLY RT LEG TECHNIQUE: AP pelvis with lateral view(s) of the bilateral hip(s). COMPARISON: None. FINDINGS: Bones: No fractures or dislocations. Pelvic ring appears intact. No suspicious bony lesions. Soft tissues: The visualized bowel gas pattern is normal. No suspicious soft tissue calcifications. IMPRESSION: Normal right hip Reviewed by: Yon Kay on 07/22/2020 3:41 PM PST Approved by: Yon Kay on 07/22/2020 3:41 PM PST Station ID: [id number]
== END 2020-07-22 13:48 | disposition home or self-care (01) ==
LOC: DI.S 13:47
PROVIDERS: ATTEND Nurse Practitioner Family
DX: M25.512 Pain in left shoulder (principal); M54.5 Low back pain; M54.10 Radiculopathy, site unspecified; M25.551 Pain in right hip; M48.56XA Collapsed vertebra, not elsewhere classified, lumbar region, initial encounter for fracture; N52.9 Male erectile dysfunction, unspecified; G45.9 Transient cerebral ischemic attack, unspecified

== ENCOUNTER 2020-07-23 09:19 | Outpatient (CLI) | payer MEDICARE, BC ==
[2020-07-23 15:11] LABS: BASOPHILS % (AUTO) 0.4 %; EOSINOPHILS # (AUTO) 0.1 10^3/uL (0.0-0.7); EOSINOPHILS % (AUTO) 0.8 %; HCT - HEMATOCRIT 45.9 % (42.0-52.0); LYMPHOCYTES # (AUTO) 2.1 10^3/uL (1.5-3.5); LYMPHOCYTES % (AUTO) 21.7 %; MEAN CORPUSCULAR HEMOGLOBIN 33.2 pg (27.0-31.0); MEAN CORPUSCULAR HGB CONC 32.7 g/dL (32.0-36.0); MEAN CORPUSCULAR VOLUME 101.5 fL (80.0-94.0); MEAN PLATELET VOLUME 9.5 fL (7.4-11.4); MONOCYTES % (AUTO) 9.9 %; NEUTROPHILS # (AUTO) 6.5 10^3/uL (1.5-6.6); NEUTROPHILS % (AUTO) 66.8 %; PLT - PLATELET COUNT 278 10^3/uL (130-450); RED BLOOD COUNT 4.52 10^6/uL (4.70-6.10); RED CELL DISTRIBUTION WIDTH 12.6 % (12.0-15.0); WHITE BLOOD COUNT 9.7 x10^3/uL (4.8-10.8)
[2020-07-23 15:20] LABS: ALBUMIN 3.8 g/dL (3.2-5.5); ALBUMIN/GLOBULIN RATIO 1.2 (1.0-2.2); ALKALINE PHOSPHATASE 49 IU/L (42-121); ALT ALANINE AMINOTRANSFERASE 14 IU/L (10-60); AST ASPARTATE AMINOTRANSFERASE 13 IU/L (10-42); BILIRUBIN,TOTAL 0.7 mg/dL (0.2-1.0); BUN - BLOOD UREA NITROGEN 20 mg/dL (6-20); CALCIUM 9.6 mg/dL (8.5-10.3); CARBON DIOXIDE - CO2 27 mmol/L (21-32); CHLORIDE 102 mmol/L (101-111); CHOL/HDL RATIO 3.6 (<5.0); CHOLESTEROL 189 mg/dL; CREATININE 0.9 mg/dL (0.6-1.2); GFR - MDRD 82 (>89); GLUCOSE 105 mg/dL (70-100); HDL CHOLESTEROL 53 mg/dL; LDL CHOLESTEROL,CALCULATED 121 mg/dL; LDL/HDL RATIO 2.3 (<3.6); POTASSIUM 4.4 mmol/L (3.5-5.0); SODIUM 138 mmol/L (135-145); TOTAL PROTEIN 7.1 g/dL (6.7-8.2); TRIGLYCERIDES 74 mg/dL; VLDL CHOLESTEROL 15 mg/dL
== END 2020-07-23 09:20 | disposition home or self-care (01) ==
LOC: LAB.S 09:19
PROVIDERS: ATTEND Nurse Practitioner Family
DX: Z00.01 Encounter for general adult medical examination with abnormal findings (principal); E55.9 Vitamin D deficiency, unspecified; E78.5 Hyperlipidemia, unspecified; M79.10 Myalgia, unspecified site; R73.9 Hyperglycemia, unspecified
CPT/HCPCS: 36415; 80053; 80061; 81599; 82306; 83525; 83721; 85025; 85651; 86140

== ENCOUNTER 2020-07-25 13:08 | Outpatient (CLI) | payer MEDICARE, BC | END 2020-07-25 13:09 | disposition home or self-care (01) | LOC: LAB.S 13:08 | PROVIDERS: ATTEND Nurse Practitioner Family | DX: Z00.01 Encounter for general adult medical examination with abnormal findings (principal); Z12.5 Encounter for screening for malignant neoplasm of prostate | CPT/HCPCS: 36415; G0103; 84153 ==

== ENCOUNTER 2020-11-16 07:05 | Outpatient (CLI) | payer MEDICARE, BC ==
[2020-11-16 14:54] LABS: BASOPHILS % (AUTO) 0.7 %; EOSINOPHILS # (AUTO) 0.1 10^3/uL (0.0-0.7); EOSINOPHILS % (AUTO) 1.7 %; HCT - HEMATOCRIT 46.7 % (42.0-52.0); HGB - HEMOGLOBIN 15.5 g/dL (14.0-18.0); LYMPHOCYTES # (AUTO) 1.7 10^3/uL (1.5-3.5); LYMPHOCYTES % (AUTO) 27.6 %; MEAN CORPUSCULAR HEMOGLOBIN 33.2 pg (27.0-31.0); MEAN CORPUSCULAR HGB CONC 33.2 g/dL (32.0-36.0); MEAN PLATELET VOLUME 9.7 fL (7.4-11.4); MONOCYTES # (AUTO) 0.8 10^3/uL (0.0-1.0); MONOCYTES % (AUTO) 12.7 %; NEUTROPHILS # (AUTO) 3.4 10^3/uL (1.5-6.6); NEUTROPHILS % (AUTO) 56.8 %; PLT - PLATELET COUNT 206 10^3/uL (130-450); RED BLOOD COUNT 4.67 10^6/uL (4.70-6.10); RED CELL DISTRIBUTION WIDTH 14.9 % (12.0-15.0)
[2020-11-16 15:43] LABS: ALBUMIN/GLOBULIN RATIO 1.6 (1.0-2.2); ALKALINE PHOSPHATASE 44 IU/L (42-121); ALT ALANINE AMINOTRANSFERASE 18 IU/L (10-60); AST ASPARTATE AMINOTRANSFERASE 16 IU/L (10-42); BILIRUBIN,TOTAL 0.6 mg/dL (0.2-1.0); BUN - BLOOD UREA NITROGEN 21 mg/dL (6-20); CALCIUM 9.2 mg/dL (8.5-10.3); CARBON DIOXIDE - CO2 24 mmol/L (21-32); CHLORIDE 105 mmol/L (101-111); CHOL/HDL RATIO 3.3 (<5.0); CHOLESTEROL 231 mg/dL; CREATININE 0.9 mg/dL (0.6-1.2); GFR - MDRD 82 (>89); GLUCOSE 106 mg/dL (70-100); HDL CHOLESTEROL 71 mg/dL; LDL CHOLESTEROL,CALCULATED 147 mg/dL; LDL/HDL RATIO 2.1 (<3.6); POTASSIUM 4.1 mmol/L (3.5-5.0); SODIUM 137 mmol/L (135-145); TOTAL PROTEIN 6.5 g/dL (6.7-8.2); TRIGLYCERIDES 66 mg/dL; VLDL CHOLESTEROL 13 mg/dL
== END 2020-11-16 07:06 | disposition home or self-care (01) ==
LOC: LAB.S 07:05
PROVIDERS: ATTEND Internal Medicine
DX: Z00.00 Encounter for general adult medical examination without abnormal findings (principal)
CPT/HCPCS: 36415; 80053; 80061; 83721; 84153; 84443; 85025

== ENCOUNTER 2021-01-09 08:00 | Outpatient (CLI) | payer MEDICARE, BC | END 2021-01-09 23:59 | disposition home or self-care (01) | LOC: LAB.S 08:00 | PROVIDERS: ATTEND Emergency Medicine | DX: R19.7 Diarrhea, unspecified (principal) | CPT/HCPCS: 81599; 87045; 87177; 87209; 87427; 87449; 87493 ==

== ENCOUNTER 2021-02-14 12:09 | Outpatient (CLI) | payer MEDICARE, BC | END 2021-02-14 12:10 | disposition home or self-care (01) | LOC: LAB.S 12:09 | PROVIDERS: ATTEND Physician Assistant | DX: H02.401 Unspecified ptosis of right eyelid (principal); R47.89 Other speech disturbances | CPT/HCPCS: 81599; 83519; 84402; 84403 ==

== ENCOUNTER 2021-03-17 14:59 | Outpatient (CLI) | payer MEDICARE, BC ==
[2021-03-17 15:11] LABS: BASOPHILS % (AUTO) 0.5 %; EOSINOPHILS # (AUTO) 0.1 10^3/uL (0.0-0.7); EOSINOPHILS % (AUTO) 0.7 %; HCT - HEMATOCRIT 48.9 % (42.0-52.0); HGB - HEMOGLOBIN 16.4 g/dL (14.0-18.0); LYMPHOCYTES # (AUTO) 1.9 10^3/uL (1.5-3.5); LYMPHOCYTES % (AUTO) 24.8 %; MEAN CORPUSCULAR HEMOGLOBIN 34.4 pg (27.0-31.0); MEAN CORPUSCULAR HGB CONC 33.5 g/dL (32.0-36.0); MEAN CORPUSCULAR VOLUME 102.5 fL (80.0-94.0); MEAN PLATELET VOLUME 9.5 fL (7.4-11.4); MONOCYTES # (AUTO) 0.9 10^3/uL (0.0-1.0); NEUTROPHILS # (AUTO) 4.7 10^3/uL (1.5-6.6); NEUTROPHILS % (AUTO) 61.5 %; PLT - PLATELET COUNT 205 10^3/uL (130-450); RED BLOOD COUNT 4.77 10^6/uL (4.70-6.10); RED CELL DISTRIBUTION WIDTH 13.9 % (12.0-15.0); WHITE BLOOD COUNT 7.6 x10^3/uL (4.8-10.8)
[2021-03-17 15:30] LABS: ALBUMIN 4.4 g/dL (3.2-5.5); ALBUMIN/GLOBULIN RATIO 1.8 (1.0-2.2); BILIRUBIN,TOTAL 0.5 mg/dL (0.2-1.0); CALCIUM 9.6 mg/dL (8.5-10.3); CREATININE 0.9 mg/dL (0.6-1.2); CRP - C-REACTIVE PROTEIN 1.5 mg/dL (0-1.0); POTASSIUM 4.3 mmol/L (3.5-5.0); TOTAL PROTEIN 6.9 g/dL (6.7-8.2)
== END 2021-03-17 15:00 | disposition home or self-care (01) ==
LOC: LAB 14:59
PROVIDERS: ATTEND Internal Medicine
DX: M80.00XS Age-related osteoporosis with current pathological fracture, unspecified site, sequela (principal); M35.3 Polymyalgia rheumatica; Z79.52 Long term (current) use of systemic steroids; Z79.1 Long term (current) use of non-steroidal anti-inflammatories (NSAID)
CPT/HCPCS: 36415; 80053; 85025; 85651; 86140

== ENCOUNTER 2021-06-06 15:23 | Outpatient (CLI) | payer MEDICARE, BC ==
[2021-06-06 15:47] LABS: BASOPHILS % (AUTO) 0.6 %; EOSINOPHILS # (AUTO) 0.2 10^3/uL (0.0-0.7); EOSINOPHILS % (AUTO) 2.6 %; HCT - HEMATOCRIT 46.3 % (42.0-52.0); HGB - HEMOGLOBIN 15.5 g/dL (14.0-18.0); LYMPHOCYTES # (AUTO) 1.9 10^3/uL (1.5-3.5); LYMPHOCYTES % (AUTO) 27.2 %; MEAN CORPUSCULAR HEMOGLOBIN 33.4 pg (27.0-31.0); MEAN CORPUSCULAR HGB CONC 33.5 g/dL (32.0-36.0); MEAN CORPUSCULAR VOLUME 99.8 fL (80.0-94.0); MEAN PLATELET VOLUME 9.1 fL (7.4-11.4); MONOCYTES # (AUTO) 0.9 10^3/uL (0.0-1.0); MONOCYTES % (AUTO) 13.8 %; NEUTROPHILS # (AUTO) 3.8 10^3/uL (1.5-6.6); NEUTROPHILS % (AUTO) 55.4 %; PLT - PLATELET COUNT 206 10^3/uL (130-450); RED BLOOD COUNT 4.64 10^6/uL (4.70-6.10); RED CELL DISTRIBUTION WIDTH 13.2 % (12.0-15.0); WHITE BLOOD COUNT 6.8 x10^3/uL (4.8-10.8)
[2021-06-06 16:03] LABS: ALBUMIN 3.9 g/dL (3.2-5.5); ALBUMIN/GLOBULIN RATIO 1.7 (1.0-2.2); BILIRUBIN,TOTAL 0.4 mg/dL (0.2-1.0); CALCIUM 9.6 mg/dL (8.5-10.3); CREATININE 1.1 mg/dL (0.6-1.2); POTASSIUM 4.2 mmol/L (3.5-5.0); TOTAL PROTEIN 6.2 g/dL (6.7-8.2)
== END 2021-06-06 15:24 | disposition home or self-care (01) ==
LOC: LAB 15:23
PROVIDERS: ATTEND Internal Medicine
DX: M35.3 Polymyalgia rheumatica (principal); Z79.52 Long term (current) use of systemic steroids; Z79.1 Long term (current) use of non-steroidal anti-inflammatories (NSAID)
CPT/HCPCS: 36415; 80053; 85025; 85651; 86140

== ENCOUNTER 2022-01-24 08:00 | Outpatient (CLI) | payer MEDICARE, BC ==
--- NOTE | 2022-01-24 14:59 | XRAY Report ---
PROCEDURE: Finger(s) RT INDICATIONS: PAIN IN RIGHT FINGERS TECHNIQUE: AP hand, 2 views of the 2nd finger(s) acquired. COMPARISON: None FINDINGS: Bones: No fractures or dislocations. Mild degenerative change. No suspicious bony lesions. Soft tissues: No suspicious soft tissue calcifications. Mild swelling at the second digit. No radiop aque foreign body. IMPRESSION: No acute osseous abnormality. Reviewed by: Linwood Hernandez MD on 01/24/2022 2:57 PM PDT Approved by: Linwood Hernandez MD on 01/24/2022 2:57 PM PDT Station ID: [id number]
== END 2022-01-24 23:59 | disposition home or self-care (01) ==
LOC: DI.S 08:00
PROVIDERS: ATTEND Registered Nurse
DX: M79.644 Pain in right finger(s) (principal)

== ENCOUNTER 2023-03-14 11:53 | Outpatient (CLI) | payer MEDICARE, OTHER | END 2023-03-14 23:59 | disposition EMS.NT | LOC: EMS 11:53 | DX: Z03.89 Encounter for observation for other suspected diseases and conditions ruled out (principal) ==

== ENCOUNTER 2023-03-14 13:12 | Emergency (ER) | payer MEDICARE, OTHER ==
[2023-03-14 13:24] VITALS: BP 140/58; O2SAT 98
--- NOTE | 2023-03-14 13:30 | ED Physician Documentation ---
PD HPI HEAD INJURY - Stated complaint Stated Complaint: GLF/HEAD INJ - Chief complaint Chief Complaint: Trauma Hd/Nk - History obtained from History obtained from: Patient - History of Present Illness Mechanism of head injury: Fell (he was taling with his who was sitting down and pt thought he was at the spot where his chair was also, but it wasn't so he sat down onto no chair there and fell back, striking head on floor. Dazed and headache and feels some off balance walking. No focal weakness.) Where head injury occurred: Other (community space with local class.) Timing - onset: How many hours ago (1), Today Location of injury: Back Quality of pain: Pain, Aching Associated symptoms: AMS (dazed and feeling "off" with slugish thought proccess. Posterior headache.). No: LOC, Nausea / vomiting, Neck pain Symptoms worsen with: Palpation Contributing factors: No: Anticoagulated Similar symptoms before: Has not had sx before Recently seen: Not recently seen Review of Systems Eyes: denies: Loss of vision, Decreased vision Skin: denies: Abrasion (s), Laceration (s) Neurologic: reports: Altered mental status. denies: Focal weakness, Numbness, Difficulty speaking, Confused, LOC PD PAST MEDICAL HISTORY - Past Medical History Cardiovascular: None Respiratory: None Neuro: Alzhiemer's, TIA, Seizure disorder : Benign prostate hypertrophy Musculoskeletal: None, Other - Past Surgical History Past Surgical History: No HEENT: Cataracts - Present Medications Home Medications: Ambulatory Orders Medication Instructions Recorded Confirmed Aspirin [Aspirin EC] 81 mg PO DAILY 02/14/18 02/14/18 Donepezil [Aricept] 5 mg PO DAILY 03/14/23 Levetiracetam [Keppra] 750 mg PO DAILY 03/14/23 Tamsulosin [Flomax] 0.4 mg PO DAILY 03/14/23 - Allergies Allergies/Adverse Reactions: Allergies Allergy/AdvReac Type Severity Reaction Status Date / Time No Known Drug Allergies Allergy Verified 03/14/23 13:22 - Social History Does the pt smoke?: No Smoking Status: Never smoker Does the pt drink ETOH?: No Does the pt have substance abuse?: No - Immunizations Immunizations are current?: Yes PD ED PE NORMAL - Vitals Vital signs reviewed: Yes - General General: Alert and oriented X 3, No acute distress, Well developed/nourished - HEENT HEENT: PERRL, EOMI, Pharynx benign, Other (back of head with focal swelling and tender. ) - Neck Neck: Supple, no meningeal sign, No bony TTP, No adenopathy - Derm Derm: Normal color, Warm and dry - Neuro Neuro: Alert and oriented X 3, structural steel erector 2-12 intact, No motor deficit, No sensory deficit, Normal speech, Other (ambulatory without ataxia. ) Eye Opening: Spontaneous Motor: Obeys Commands Verbal: Oriented GCS Score: 15 Results - Vitals Vitals: Oxygen O2 Source Room air - Rads (name of study) head CT Relevant Findings:: Prelim report reviewed, EMP independent interpretation of test (no ICH nor acute injury. ) PD Medical Decision Making - ED course Complexity details: reviewed results (head CT without acute process. ), considered differential (struck head. By age and hematoma, he does not exclude from imaging by NEXUS head criteria, 2 points is high criteria and recommends CT scan.), d/w patient Reviewed Lab Results: mild concussive symptoms. I discussed with him and to have easy activity for 2 days. Manager Story activity and coordination before driving, tools use, etc. Departure - Departure Disposition: 01 Home, Self Care Clinical Impression: Accidental fall Qualifiers: Encounter type: initial encounter Qualified Code(s): W19.XXXA - Unspecified fall, initial encounter Head contusion Qualifiers: Encounter type: initial encounter Contusion of head detail: scalp Qualified Code(s): S00.03XA - Contusion of scalp, initial encounter Condition: Stable Record reviewed to determine appropriate education?: Yes Instructions: ED Concussion Follow-Up: Gallo Vivas MD [Primary Care Provider] - Comments: Your head CT scan is normal without any signs of bleeding, fracture, localized swelling. You will still likely have some mild symptoms for a day or 2 from having banged your head. This can include mild blurred vision,'s lightly off balance, mild headache or similar. Typically those will just last a day or 2. Recheck if not improved over the next couple of days. Modulate activity for the next couple of days without driving, power tools, ladders or similar in case your balance or coordination are off. Return if worsening symptoms overall. Forms: PCP List Discharge Date/Time: 03/14/23 15:08
--- NOTE | 2023-03-14 14:31 | CT Report ---
PROCEDURE: HEAD WO INDICATIONS: fall, struck head; confused TECHNIQUE: Noncontrast 4.5 mm thick angled axial sections acquired from the foramen magnum to the vertex. For r adiation dose reduction, the following was used: automated exposure control, adjustment of mA and/or kV according to patient size. COMPARISON: 01/15/2018 FINDINGS: Image quality: Excellent. CSF spaces: Basal cisterns are patent. No extra-axial fluid collections. The ventricles are symmet radha in size and shape. Brain: No intracranial bleeds or masses. There is cerebral volume loss for age, with resultant vent ricular and sulcal prominence. There are periventricular and deep white matter chronic small vessel ischemic changes. There is intracranial internal carotid artery atherosclerosis. Skull and face: Calvarium and visualized facial bones appear intact, without suspicious lesions. Sinuses: Visualized sinuses and mastoids are clear. IMPRESSION: No acute intracranial abnormalities. No acute skull fracture. Reviewed by: Herman Pradhan MD on 03/14/2023 2:29 PM PDT Approved by: Herman Pradhan MD on 03/14/2023 2:29 PM PDT Station ID: [id number]
== END 2023-03-14 15:08 | disposition home or self-care (01) ==
LOC: ED 13:12
DX: S00.03XA Contusion of scalp, initial encounter (principal); W18.39XA Other fall on same level, initial encounter; Y93.89 Activity, other specified; Y92.89 Other specified places as the place of occurrence of the external cause
CPT/HCPCS: 99283; 99284

== ENCOUNTER 2023-06-21 11:41 | Outpatient (CLI) | payer MEDICARE, OTHER | END 2023-06-21 11:42 | disposition left against medical advice (07) | LOC: EMS 11:41 | DX: I10 Essential (primary) hypertension (principal); R19.7 Diarrhea, unspecified; R42 Dizziness and giddiness ==